=== PATIENT | male | born 1955 | race Caucasian/White ===

== ENCOUNTER 2017-04-14 19:33 | Inpatient (IN) | payer BC ==
[~2017-04-14] VITALS: Ht 168.9 cm; Wt 86.2 kg
--- NOTE | ~2017-04-14 | RHP ---
PATIENT: DALIA MCCANN MEDICAL RECORD: [id number] ACCOUNT: [id number] LOCATION:[facility]1112 : 55 ADMISSION DATE: 04/14/17 REHABILITATION HISTORY AND PHYSICAL EXAMINATION POST ADMISSION PHYSICIAN EXAMINATION DATE OF ADMISSION: 04/14/2017. ADMITTING DIAGNOSES: Status post coronary artery bypass grafting. HISTORY OF PRESENT ILLNESS: The patient is a 62-year-old gentleman admitted with coronary artery disease, multivessel disease, and underwent coronary artery bypass grafting times 4 on 04/09/2017. He saw Dr. Rucker at [facility]. The patient reportedly lives at home with his who has epilepsy and is unable to assist him with his care when discharged, postoperatively developed acute blood loss anemia. He has some intermittent confusion and generalized weakness. Currently, he is on room air with sats of 93%. Follow up with PT. He is afebrile with sternal incision, looks well. He has been placed on a daily aspirin, statin, and metoprolol, MD requested rehabilitation prior to him going home. COMORBIDITIES: Include acute blood loss anemia, hypertension, AFib, and anxiety. PAST MEDICAL HISTORY: Significant for hypertension, anxiety, coronary artery disease, and BPH. PAST SURGICAL HISTORY: Please see previous charts other than coronary artery bypass grafting. ALLERGIES: PENICILLIN. CURRENT MEDICATIONS: Includes a Nicoderm patch 21 mg daily. He is on Pepcid 20 mg daily, Lipitor 40 mg daily, aspirin 81 mg daily, Restoril 15 mg at bedtime, Remeron 15 mg at bedtime, Lopressor 25 mg b.i.d., melatonin 3 mg as needed, Ativan 0.5 mg q.6 hours p.r.n., Tylenol as needed, and polyethylene glycol 17 gm in 8 ounces of water daily. HABITS: Does have a history of tobacco use. FAMILY HISTORY: Noncontributory. SOCIAL HISTORY: The patient hopes to return back home and get back to his prior level of functioning. REVIEW OF SYSTEMS: GENERAL: Does complain of some generalized weakness. HEENT: He denies cold, cough, or congestion. CARDIOVASCULAR: Denies chest pain. PHYSICAL EXAMINATION: VITAL SIGNS: Stable, afebrile. GENERAL: A well-developed gentleman in no acute distress, alert upon exam. HEENT: Normocephalic and atraumatic. Mucosa moist. NECK: Supple without lymphadenopathy. HISTORY AND PHYSICAL [id number] DALIA MCCANN LUNGS: Clear at this time. HEART: Has a regular rate and rhythm. ABDOMEN: Benign. EXTREMITIES: No clubbing, cyanosis, or edema. NEUROLOGIC: He is intact. ASSESSMENT: This is a 62-year-old gentleman admitted to the rehab with a working diagnosis of coronary artery disease status post coronary artery bypass grafting. The patient has potential to make improvement. We instituted the following multidisciplinary therapies including to, but not limited to physical, occupational, respiratory, speech, nutritional services, prosthetics, and orthotics. Given his complex condition and risk for more complications, rehabilitation services cannot be provided at a lower level of care such as long term facility. PLAN: 1. Admit to [facility] for intensive inpatient therapy to include the following disciplines: A. Physical therapy to improve gait, all transfer skills and bed mobility to a modified independent level. B. Occupational therapy to improve activities of daily living to a modified level. C. Case management to assist with discharge planning and placement options. D. Nutrition to assist with nutritional needs. E. Rehabilitation nursing to assist in monitoring the following medical conditions and to assist with any type of bowel or bladder management. 2. The patient's current medication will be continued. 3. The patient will be placed on standard fall precautions. 4. The patient estimated length of stay is approximately 7-10 days. 5. Discuss this patient during care team staff meeting this week. TRANSINT:[id number] Voice Confirmation ID: [id number] DOCUMENT ID: [id number] ASHLEY notes whether there has been none or any medical/functional change since admission: - No change since preadmission screen. ASHLEY attests patient continues to be appropriate for IRF: - Continues to be appropriate. COMPA MORRIS MD at 1139 CC: [id number] DICTATION DATE: 04/15/17 0833 HOSPITAL PLAN ADMINISTRATOR: 04/15/17 0855 DIS IN 04/17/17 [place] [id number]
--- NOTE | ~2017-04-14 | DS ---
PATIENT:DALIA MCCANN :55 MEDICAL RECORD: [id number] DISCHARGE SUMMARY ADMISSION DATE: 04/14/17 DISCHARGE DATE: 04/17/17 This is a discharge dated 04/17/2017 from inpatient rehabilitation. PRIMARY DIAGNOSIS: Decreased functional ability and ability to provide activities of daily living status post coronary artery bypass graft. SECONDARY DIAGNOSES: 1. Coronary artery disease. 2. Acute blood loss anemia. 3. Hypertension. 4. Atrial fibrillation. 5. Hyperlipidemia. 6. Anxiety. 7. Benign prostatic hypertrophy. HOSPITAL COURSE: Full H&P is located elsewhere on the chart on this 62-year-old male who was admitted to inpatient rehab for physical therapy and occupational therapy to improve gait, transfer skills, bed mobility, and activities of daily living to a modified independent level. He was evaluated by PT and OT and their plans of care were followed. He required detention care for observation and assessment, medication administration as well as wound care and monitoring of surgical incisions. Electrolytes were managed by protocol. He remained on appropriate home medications. He was cooperative with therapies, progressing towards goals. Case management was involved for discharge planning. He was considered stable for discharge on 04/17/2017. DISCHARGE MEDICATIONS: As per discharge medication reconciliation. DISCHARGE DISPOSITION: The patient is discharged home. He will continue his current diet and level of activity and will follow up with primary care and specialists as directed. At least 30 minutes was spent in this discharge activity. TRANSINT:[id number] Voice Confirmation ID: [id number] DOCUMENT ID: [id number] Dictated By: SANDRA SHAH I have interviewed/examined the above patient and agree with these documented findings. COMPA MORRIS MD at 1157 at 0940 CC: [id number] DICTATION DATE: 06/12/17 1151 WOUND CARE TECHNICIAN: 06/13/17 0932 DIS IN 04/17/17 [facility] [address] [id number]
[2017-04-14] MEDS ORDERED: REMERON15 MG PO ×2 (20:17→20:19)
[2017-04-14] MEDS ORDERED: TRIPLE ANTIB28.35 GM (20:23)
[2017-04-14] MEDS ORDERED: LIPITOR40 MG PO (20:24)
[2017-04-14] MEDS ORDERED: NICODERM C1 PATCH .3 (20:25)
[2017-04-14] MEDS ORDERED: LOPRESSOR25 MG PO (20:26)
[2017-04-14] MEDS ORDERED: DOK100 MG PO (20:27)
[2017-04-14] MEDS ORDERED: PEPCID20 MG PO (20:28)
[2017-04-14] MEDS ORDERED: LOW DOSE ASPIRI81 M1 PO (20:29)
[2017-04-14] MEDS ORDERED: ATIVAN0.5 MG PO (20:32)
[2017-04-14] MEDS ORDERED: HYDROCODONE-APA1 TAB PO (20:36)
[2017-04-14] MEDS ORDERED: XANAX0.25 MG PO (20:41)
[2017-04-14] MEDS ORDERED: RESTORIL15 MG PO (20:43)
[2017-04-14] MEDS ORDERED: MELATONIN 3 MG1 TAB PO ×2 (20:45→20:47)
[2017-04-14] MEDS ORDERED: ACETAMINOPHEN500 M1 PO (20:49)
[2017-04-14 23:23] VITALS: BP 171/78; BMI 30.2
[2017-04-15 00:24] VITALS: BP 171/78
[2017-04-15 08:00] VITALS: BP 109/58
[2017-04-15 12:31] VITALS: Ht 168.9 cm; Wt 86.2 kg
[2017-04-15 19:45] VITALS: BP 167/85
[2017-04-16 06:10] LABS: BASOPHILS 0.1 % (0-2); EOSINOPHILS 0.2 % (0-7); HEMATOCRIT 25.4 % (42.0-54.0); HEMOGLOBIN 8.6 g/dL (13.5-17.5); LYMPHOCYTES 18.3 % (15-50); MCH 29.7 pg (26.0-34.0); MCHC 33.9 g/dL (31.0-37.0); MCV 87.6 fL (80.0-100.0); MEAN PLATELET VOLUME 9.2 fL (7.4-10.4); MONOCYTES 9.1 % (2-11); NEUTROPHILS 71.3 % (40-80); PLATELET COUNT 344 10x3/uL (130-400); RDW 14.3 % (11.5-14.5); WBC 10.5 10x3/uL (4.8-10.8)
[2017-04-16 06:56] LABS: ANION GAP 15.9 mmol/L (8-16); CARBON DIOXIDE 23.5 mmol/L (21.0-32.0); CREATININE - SERUM 1.1 mg/dL (0.6-1.3); POTASSIUM - SERUM 4.4 mmol/L (3.5-5.1)
[2017-04-16 08:09] VITALS: BP 119/81
[2017-04-16 20:43] VITALS: BP 104/48
[2017-04-17 06:57] LABS: BASOPHILS 0.1 % (0-2); EOSINOPHILS 0.1 % (0-7); HEMATOCRIT 25.9 % (42.0-54.0); HEMOGLOBIN 8.3 g/dL (13.5-17.5); IMMATURE GRANULOCYTES 1.1 % (0-5); LYMPHOCYTES 15.5 % (15-50); MCH 28.2 pg (26.0-34.0); MCV 88.1 fL (80.0-100.0); MONOCYTES 9.3 % (2-11); NEUTROPHILS 73.9 % (40-80); PLATELET COUNT 383 10x3/uL (130-400); RBC 2.94 10x6/uL (4.20-6.10); RDW 14.1 % (11.5-14.5); WBC 10.3 10x3/uL (4.8-10.8)
[2017-04-17 07:11] LABS: ANION GAP 12.9 mmol/L (8-16); CALCIUM 8.9 mg/dL (8.5-10.1); CARBON DIOXIDE 25.4 mmol/L (21.0-32.0); CREATININE - SERUM 1.2 mg/dL (0.6-1.3); POTASSIUM - SERUM 4.3 mmol/L (3.5-5.1)
[2017-04-17 08:59] VITALS: BP 123/76
== END 2017-04-17 18:20 | disposition home or self-care (01) | DRG 303 ==
LOC: D.REHAB 19:33
PROVIDERS: Emergency Medicine
DX: I25.10 Atherosclerotic heart disease of native coronary artery without angina pectoris (principal); D62 Acute posthemorrhagic anemia; Z95.1 Presence of aortocoronary bypass graft; I10 Essential (primary) hypertension; I48.91 Unspecified atrial fibrillation; F41.9 Anxiety disorder, unspecified

== ENCOUNTER 2017-05-20 16:07 | Emergency (ER) | payer BC, OTHER ==
[2017-04-15 12:31] VITALS: BMI 30.2
[~2017-05-20 16:07] MED LIST: ACETAMINOPHEN500 M1 PO; ATIVAN0.5 MG PO; DOK100 MG PO; HYDROCODONE-APA1 TAB PO; LIPITOR40 MG PO; LOPRESSOR25 MG PO; LOW DOSE ASPIRI81 M1 PO; MELATONIN 3 MG1 TAB PO; NICODERM C1 PATCH .3; PEPCID20 MG PO; REMERON15 MG PO; RESTORIL15 MG PO; TRIPLE ANTIB28.35 GM; XANAX0.25 MG PO
[2017-05-20 17:18] LABS: BASOPHILS 0.1 % (0-2); EOSINOPHILS 0 % (0-7); HEMATOCRIT 40.7 % (42.0-54.0); HEMOGLOBIN 13.6 g/dL (13.5-17.5); IMMATURE GRANULOCYTES 0.4 % (0-5); MCH 28.2 pg (26.0-34.0); MCHC 33.4 g/dL (31.0-37.0); MCV 84.3 fL (80.0-100.0); MEAN PLATELET VOLUME 9.1 fL (7.4-10.4); MONOCYTES 4.6 % (2-11); NEUTROPHILS 75.9 % (40-80); PLATELET COUNT 318 10x3/uL (130-400); RBC 4.83 10x6/uL (4.20-6.10); RDW 15.4 % (11.5-14.5); WBC 8.5 10x3/uL (4.8-10.8)
[2017-05-20 17:33] LABS: ALBUMIN 3.4 g/dL (3.4-5.0); ANION GAP 14.4 mmol/L (8-16); BILIRUBIN - TOTAL 0.63 mg/dL (0.2-1.3); CARBON DIOXIDE 27.6 mmol/L (21.0-32.0); CREATININE - SERUM 1.3 mg/dL (0.6-1.3); PROTEIN - SERUM 8.1 g/dL (6.4-8.2)
[2017-05-20 17:41] LABS: TROPONIN-I 0.02 ng/mL (0.000-0.060)
[2017-05-20 18:10] LABS: INR 1.12 (0.85-1.17)
== END 2017-05-20 20:13 | disposition home or self-care (01) ==
LOC: D.ER 16:07
PROVIDERS: Nurse Practitioner Family
DX: I10 Essential (primary) hypertension (principal); R00.2 Palpitations; F41.9 Anxiety disorder, unspecified; Z86.79 Personal history of other diseases of the circulatory system